=== PATIENT | female | born 1945 | race Caucasian/White ===

== ENCOUNTER → 2017-08-02 | Outpatient (CLI) | payer MEDICARE ==
--- NOTE | 2017-08-02 16:28 | PCVCIMAG ---
EXAM: LEFT SUPERFICIAL VENOUS DUPLEX INDICATION: Leg pain and swelling. FINDINGS: Left leg: No thrombus in the common femoral, main femoral, or popliteal veins. These veins are compressible. Left Great Saphenous Vein: At the saphenofemoral junction the diameter is 8.4 mm, in the mid thigh it is 7.4 mm, and in the calf it is 8.4 mm. There is significant venous insufficiency/reflux throughout. Venous insufficiency/reflux duration is 3.4 seconds. Left Small Saphenous Vein: At the saphenopopliteal junction the diameter is 5.0 mm, and in the calf it is 5.0 mm. There is significant venous insufficiency/reflux throughout. Venous insufficiency/reflux duration is 1.8 seconds. There is not a cranial extension present. IMPRESSION: Left Great Saphenous Vein: Significant venous insufficiency/reflux is present as noted above. Left Small Saphenous Vein: Significant venous insufficiency/reflux is present as noted above. LOC:[place] [id number]
== END | disposition home or self-care (01) ==
LOC: PCVCIMAG 13:48
PROVIDERS: ATTEND Nuclear Medicine Nuclear Cardiology
DX: I87.2 Venous insufficiency (chronic) (peripheral) (principal); I10 Essential (primary) hypertension; K21.9 Gastro-esophageal reflux disease without esophagitis; Z87.891 Personal history of nicotine dependence; Z79.82 Long term (current) use of aspirin; Z79.899 Other long term (current) drug therapy
CPT/HCPCS: 36415; 93970; G0463

== ENCOUNTER → 2017-08-04 | Outpatient (CLI) | payer MEDICARE ==
[~2017-08-04] MED LIST: DIAZEPAM 10 MG TABLET.; IOHEXOL 300 MG/ML 100ML VIAL.; IV NORMAL SALINE 1000ML BAG 1,000 ML; LIDOCAINE 1% Multi-Dose 20 ML VIAL.; MIDAZOLAM HCL/PF 2 MG/2 ML VIAL.; fentaNYL PF VIAL 100 MCG/2 ML VIAL
== END | disposition home or self-care (01) ==
LOC: PCVCINTER 07:15
DX: I87.2 Venous insufficiency (chronic) (peripheral) (principal); I74.5 Embolism and thrombosis of iliac artery; I87.309 Chronic venous hypertension (idiopathic) without complications of unspecified lower extremity
CPT/HCPCS: 36012; 37252; 37253; 75822; 75825; 76937; 93926; 99152; 99153; C1751; C1753; C1769; C1894; J1644; J2250; J3010; J7030; Q9967

== ENCOUNTER → 2017-08-16 | Outpatient (CLI) | payer MEDICARE ==
[~2017-08-16] MED LIST changes: +ARNICA TOPICAL GEL 1.5OZ TUBE. TP ONE; +CEPHALEXIN 250 MG CAPSULE. ONE; -DIAZEPAM 10 MG TABLET.; +DIAZEPAM 10 MG TABLET. ONE; +EPINEPHrine 1 MG/ML VIAL ONE; -IOHEXOL 300 MG/ML 100ML VIAL.; -IV NORMAL SALINE 1000ML BAG 1,000 ML; +IV NORMAL SALINE 1000ML BAG 1,000 ML ONE; -LIDOCAINE 1% Multi-Dose 20 ML VIAL.; +LIDOCAINE 1% Multi-Dose 20 ML VIAL. ONE; -MIDAZOLAM HCL/PF 2 MG/2 ML VIAL.; +SODIUM BICARBONATE 50 MEQ/50 ML VIAL. ONE; -fentaNYL PF VIAL 100 MCG/2 ML VIAL
--- NOTE | 2017-08-16 09:37 | PCVCINTER ---
EXAM: LEFT GREAT ENDOVENOUS LASER ABLATION INDICATION: Chronic Venous Insufficiency Class 6. Leg pain and swelling. Failed conservative therapy including medical grade compression stockings for at least 3 months. Venous hypertension chronic. PROCEDURE: Procedure and risks of endovenous laser ablation including thrombosis, vascular injury, nerve injury, skin necrosis, and infection were discussed with the patient and consent obtained. The left leg was prepped and draped in the normal sterile fashion. Using ultrasound guidance access into the left great was obtained and a 5F 65 cm long catheter was advanced to 2 cm below the saphenofemoral junction. The laser fiber was advanced through the catheter to its tip and the catheter partially retracted. Abundant tumescent anesthesia using a dilute lidocaine solution was given in the perivenous tissues throughout the length of the laser fiber. Ultrasound confirmed good position of the distal tip of the laser fiber as well as direct transcutaneous visualization. The 1470 Dornier laser was set to 6 leary and a slow continuous pull-back technique employed to deliver 2761 Joules throughout the treated segment. Catheter and fiber were removed and hemostasis obtained. No immediate complications. The leg was dressed and wrapped appropriately and reinforced with a compression stocking. IMPRESSION: Satisfactory endovenous laser ablation of the left great saphenous vein. EXAM: LEFT SMALL ENDOVENOUS LASER ABLATION INDICATION: Chronic Venous Insufficiency Class 6. Leg pain and swelling. Failed conservative therapy including medical grade compression stockings for at least 3 months. Venous hypertension chronic. PROCEDURE: Procedure and risks of endovenous laser ablation including thrombosis, vascular injury, nerve injury, skin necrosis, and infection were discussed with the patient and consent obtained. The left leg was prepped and draped in the normal sterile fashion. Using ultrasound guidance access into the left small was obtained and a 5F 30 cm long catheter was advanced to 2 cm below the saphenopopliteal junction. The laser fiber was advanced through the catheter to its tip and the catheter partially retracted. Abundant tumescent anesthesia using a dilute lidocaine solution was given in the perivenous tissues throughout the length of the laser fiber. Ultrasound confirmed good position of the distal tip of the laser fiber as well as direct transcutaneous visualization. The 1470 Dornier laser was set to 5 leary and a slow continuous pull-back technique employed to deliver 1099 Joules throughout the treated segment. Catheter and fiber were removed and hemostasis obtained. No immediate complications. The leg was dressed and wrapped appropriately and reinforced with a compression stocking. IMPRESSION: Satisfactory endovenous laser ablation of the left small saphenous vein. LOC:[id number]
== END | disposition home or self-care (01) ==
LOC: PCVCINTER 07:18
PROVIDERS: ATTEND Nuclear Medicine Nuclear Cardiology
DX: I87.2 Venous insufficiency (chronic) (peripheral) (principal); I87.022 Postthrombotic syndrome with inflammation of left lower extremity
CPT/HCPCS: 36478; 36479; C1751; C1769; C1894; J0171; J7030

== ENCOUNTER → 2017-12-28 | Outpatient (CLI) | payer MEDICARE | END | disposition home or self-care (01) | LOC: PCVCIMAG 16:00 | DX: I87.2 Venous insufficiency (chronic) (peripheral) (principal); M79.89 Other specified soft tissue disorders; I10 Essential (primary) hypertension; L97.329 Non-pressure chronic ulcer of left ankle with unspecified severity; R60.0 Localized edema; Z88.0 Allergy status to penicillin; Z79.899 Other long term (current) drug therapy; Z79.82 Long term (current) use of aspirin | CPT/HCPCS: 93971; G0463 ==